=== PATIENT | female | born 1995 | race American Indian/Alaskan Native ===

== ENCOUNTER 2021-05-15 16:01 | Emergency (ER) | payer SELFPAY ==
[2021-05-15 18:49] VITALS: BP 121/83
[2021-05-15 21:03] LABS: Basophils # (Auto) 0.1 K/mm3 (0.0-0.1); Basophils % (Auto) 1.2 % (0.0-1.8); Eosinophils # (Auto) 0.1 K/mm3 (0.0-0.4); Eosinophils % (Auto) 1.2 % (0.0-4.3); Hematocrit 38.2 % (30.3-42.9); Hemoglobin 12.2 gm/dl (10.1-14.3); Lymphocytes # (Auto) 4.1 K/mm3 (1.2-5.4); Lymphocytes % (Auto) 47.2 % (13.4-35.0); Mean Corpuscular HGB Conc 32 % (30-34); Mean Corpuscular Volume 81 fl (79-97); Monocytes # (Auto) 0.7 K/mm3 (0.0-0.8); Monocytes % (Auto) 8.7 % (0.0-7.3); Platelet Count 444 K/mm3 (140-440); Red Blood Count 4.71 M/mm3 (3.65-5.03); Red Cell Distribution Width 14.3 % (13.2-15.2)
[2021-05-15 21:29] LABS: Bacteria,Urine 2+ /HPF (Negative); Bilirubin,Urine NEG (Negative); Blood,Urine LG (Negative); Color,Urine Yellow (Yellow); Mucus,Urine FEW /HPF; Urobilinogen,Urine < 2.0 mg/dL (<2.0)
[2021-05-15 21:35] LABS: WBC,Urine < 1.0 /HPF (0.0-6.0)
[2021-05-15] MEDS ORDERED: BUTALB/ACETAMINOPHEN/CAFFEINE TAB PO ONE (21:39)
--- NOTE | 2021-05-15 22:05 | Emergency Department Report ---
ED Headache HPI - General Chief Complaint: Headache Stated Complaint: VAGINAL BLEEDING/HEADACHE Time Seen by Provider: 05/15/21 20:41 Source: patient - History of Present Illness Initial Comments: 25-year-old black female presents to the emergency department with 1 month history of vaginal spotting, abdominal pain, and headache. She denies fever, nausea, vomiting. Timing/Duration: other (2-week) Quality: moderate Head Injury Location: frontal Recent Head Trauma: no recent headache/trauma Associated Symptoms: denies: confusion, fatigue, facial pain, fever/chills, flushing, loss of consciousness, nausea/vomiting, nasal congestion, nasal drainage, numbness in legs/feet, rash, sinus infection, stiff neck, vision changes, weakness Allergies/Adverse Reactions: Allergies No Known Allergies Allergy (Verified 05/15/21 18:49) ED Review of Systems ROS: Stated complaint: VAGINAL BLEEDING/HEADACHE Other details as noted in HPI Comment: All other systems reviewed and negative Constitutional: denies: chills, fever Respiratory: denies: shortness of breath, SOB with exertion, SOB at rest Cardiovascular: denies: chest pain, palpitations, dyspnea on exertion Gastrointestinal: abdominal pain. denies: nausea, vomiting, diarrhea, hematemesis, melena, hematochezia Genitourinary: abnormal menses. denies: urgency, dysuria, frequency, hematuria, discharge Musculoskeletal: denies: back pain Neurological: denies: headache, weakness, numbness, paresthesias, abnormal gait ED Past Medical Hx - Past Medical History Previous Medical History?: No ED Physical Exam - General Limitations: No Limitations General appearance: alert, in no apparent distress - Head Head exam: Present: atraumatic, normocephalic - Eye Eye exam: Present: normal appearance. Absent: conjunctival injection - Neck Neck exam: Present: normal inspection. Absent: tenderness, lymphadenopathy - Respiratory Respiratory exam: Present: normal lung sounds bilaterally. Absent: respiratory distress, wheezes, rales, rhonchi, stridor, chest wall tenderness, accessory muscle use - Cardiovascular Cardiovascular Exam: Present: regular rate, normal heart sounds - GI/Abdominal GI/Abdominal exam: Present: soft, normal bowel sounds. Absent: distended, tende rness, guarding, rebound, rigid - Extremities Exam Extremities exam: Present: normal inspection - Back Exam Back exam: Present: normal inspection. Absent: tenderness, CVA tenderness (R), CVA tenderness (L) - Neurological Exam Neurological exam: Present: alert, oriented X3, CN II-XII intact, normal gait, reflexes normal. Absent: motor sensory deficit - Psychiatric Psychiatric exam: Present: normal affect, normal mood - Skin Skin exam: Present: warm, dry, intact, normal color ED Course Vital Signs 05/15/21 18:45 Temperature 98.2 F Pulse Rate 95 H Respiratory 16 Rate Blood Pressure 121/83 O2 Sat by Pulse 99 Oximetry - Reevaluation(s) Reevaluation #1: 05/15/21 22:24 Headache resolved. ED Medical Decision Making - Lab Data Result diagrams: 05/15/21 20:24 - Medical Decision Making 25-year-old black female presents to the emergency department with 1 month history of vaginal spotting, abdominal pain, and headache. She denies fever, nausea, vomiting. Headache resolved after medication. No neurologic deficits noted. Urine negative for urinary tract infection, negative serum qualitative hCG, and H&H within normal limits. Patient in no acute distress, no tenderness noted on abdominal exam, low suspicion for acute abdomen. Patient will be discharged home to follow-up with her [employer] for management of vaginal bleeding and her primary care provider if she develops headaches. She was advised to return to the emergency department for any concerning symptoms. She verbalized understanding of and agreement with plan of care. Critical care attestation.: If time is entered above; I have spent that time in minutes in the direct care of this critically ill patient, excluding procedure time. ED Disposition Clinical Impression: Vaginal spotting Headache Qualifiers: Headache type: unspecified Headache chronicity pattern: acute headache Intractability: not intractable Qualified Code(s): R51.9 - Headache, unspecified Disposition: HOME / SELF CARE / HOMELESS Is pt being admited?: No Does the pt Need Aspirin: No Condition: Stable Instructions: General Headache Without Cause, [id number], Abnormal Uterine Bleeding, [id number] Additional Instructions: Follow-up with primary care provider for further evaluation and management. Referrals: NOEMY TRINH MD [Referring] - 3-5 Days OBED YA MD [Staff Physician] - 3-5 Days Forms: Work/School Release Form(ED) Time of Disposition: 22:05
== END 2021-05-15 22:22 | disposition home or self-care (01) ==
LOC: ED 16:01
DX: N93.9 Abnormal uterine and vaginal bleeding, unspecified (principal); R51.9 Headache, unspecified
CPT/HCPCS: 36415; 81001; 84702; 84703; 85025; 86900; 86901; 99283